=== PATIENT | female | born 1945 | race Caucasian/White ===

== ENCOUNTER 2020-12-19 20:01 | Emergency (ER) | payer MEDICARE ==
[~2020-12-19] VITALS: Ht 165.1 cm; Wt 75.0 kg
[~2020-12-19 20:01] MED LIST: AUGMENTIN875TAB OR; LEVAQUIN500 MG PO; Levaquin OR; MEDDOSEPAK PO; PROAIR HFA IN; QVAR80 MCG IN
[2020-12-19 21:22] LABS: HEMATOCRIT 35.3 % (37.0-47.0); HEMOGLOBIN 10.9 g/dl (12.0-16.0); IMMATURE GRANULOCYTES 0.7 % (0.0-5.0); MEAN CELL VOLUME 90.3 fL CALC (80.0-100.0); MEAN CORPUSCULAR HGB 27.9 pG CALC (26.0-32.0); MEAN CORPUSCULAR HGB CONC 30.9 g/dL CAL (32.0-36.0); NEUT# 6.85 thou/uL (2.00-7.15); RED BLOOD COUNT 3.91 mill/uL (4.20-5.60); RED CELL DISTRI WIDTH 15.2 % (11.5-15.5)
[2020-12-19 21:34] LABS: ALKALINE PHOSPHATASE 96 u/l (38-126); ANION GAP 9 (6-22 (CALC)); BILIRUBIN, TOTAL 0.8 mg/dL (0.0-1.4); BUN/CREATININE RATIO 37 (12-20 (CALC)); CARBON DIOXIDE 30 mmol/l (22-30); CHLORIDE 103 mmol/l (95-108); CREATININE 1.2 mg/dL (0.5-1.0); GFR 44 ML/MIN (>=60 (CALC)); GFR FOR AFR.AMER. 53 ML/MIN (>=60 (CALC)); POTASSIUM 4.6 mmol/l (3.5-5.1); SGOT/AST 21 u/l (9-36); SODIUM 138 mmol/l (137-146); TOTAL PROTEIN 7.7 g/dL (6.3-8.2)
[2020-12-19 21:37] LABS: BUN 44 mg/dL (8-23)
[2020-12-19 21:40] LABS: D-DIMER 0.81 mg/L (0.19-0.60)
[2020-12-19 21:42] LABS: MYOGLOBIN 27 ng/mL (0 - 62)
[2020-12-19 22:00] LABS: ACT PARTIAL THROMBO TIME 23.1 SECONDS (20.0-32.5); INTERNATIONAL NORMALIZED RATIO 0.9 RATIO (0.7-1.3); PROTHROMBIN TIME 9.7 SECONDS (9.0-12.5)
[2020-12-19 22:15] LABS: URINE BILIRUBIN - DIPSTICK NEGATIVE (NEGATIVE); URINE BLOOD DIPSTICK TRACE-INTACT (NEGATIVE); URINE COLOR YELLOW; URINE GLUCOSE - DIPSTICK NEGATIVE (NEGATIVE); URINE KETONE NEGATIVE (NEGATIVE); URINE PROTEIN - DIPSTICK NEGATIVE (NEG-TRACE); URINE SPECIFIC GRAVITY 1.015; URINE UROBILINOGEN - DIPSTICK 0.2 E.U./dL (0.2)
[2020-12-19 22:22] LABS: URINE LEUK ESTERASE SMALL (NEGATIVE); URINE NITRITE - DIPSTICK NEGATIVE (Negative)
[2020-12-19 22:29] LABS: URINE SQUAMOUS EPITHELIAL CELL FEW EPI/hpf (0-FEW)
[2020-12-20 03:50] VITALS: BP 67/46
== END 2020-12-20 03:45 | disposition short-term general hospital (02) ==
LOC: ED 20:01
PROVIDERS: Family Medicine
PROC: 0T9B70Z Drainage of Bladder with Drainage Device, Via Natural or Artificial Opening (ICD-10-PCS; principal; 2020-12-19)
DX: I10 Essential (primary) hypertension (principal); I48.91 Unspecified atrial fibrillation; Z20.822 Contact with and (suspected) exposure to COVID-19
CPT/HCPCS: J1650; J2060; Q9967

== ENCOUNTER 2020-12-26 18:35 | Emergency (ER) | payer MEDICARE ==
[~2020-12-26] VITALS: Ht 165.1 cm; Wt 75.0 kg
[2020-12-26 19:44] LABS: HEMATOCRIT 31.7 % (37.0-47.0); HEMOGLOBIN 9.6 g/dl (12.0-16.0); IMMATURE GRANULOCYTES 0.5 % (0.0-5.0); MEAN CELL VOLUME 92.7 fL CALC (80.0-100.0); MEAN CORPUSCULAR HGB 28.1 pG CALC (26.0-32.0); MEAN CORPUSCULAR HGB CONC 30.3 g/dL CAL (32.0-36.0); NEUT# 6.39 thou/uL (2.00-7.15); RED BLOOD COUNT 3.42 mill/uL (4.20-5.60)
[2020-12-26 19:59] LABS: ALBUMIN 3.9 g/dL (3.2-5.0); ALKALINE PHOSPHATASE 76 u/l (38-126); ANION GAP 9 (6-22 (CALC)); BILIRUBIN, TOTAL 0.8 mg/dL (0.0-1.4); BUN 29 mg/dL (8-23); BUN/CREATININE RATIO 30 (12-20 (CALC)); CARBON DIOXIDE 27 mmol/l (22-30); CHLORIDE 106 mmol/l (95-108); GFR 54 ML/MIN (>=60 (CALC)); GFR FOR AFR.AMER. > 60 ML/MIN (>=60 (CALC)); POTASSIUM 4.8 mmol/l (3.5-5.1); SGOT/AST 19 u/l (9-36); SODIUM 137 mmol/l (137-146); TOTAL PROTEIN 7.4 g/dL (6.3-8.2)
[2020-12-26 20:00] LABS: PROTHROMBIN TIME 12.4 SECONDS (9.0-12.5)
[2020-12-26 20:11] LABS: MYOGLOBIN 22 ng/mL (0 - 62)
[2020-12-26 20:15] LABS: INTERNATIONAL NORMALIZED RATIO 1.2 RATIO (0.7-1.3)
[2020-12-26 20:51] LABS: URINE BILIRUBIN - DIPSTICK NEGATIVE (NEGATIVE); URINE BLOOD DIPSTICK TRACE-INTACT (NEGATIVE); URINE COLOR YELLOW; URINE GLUCOSE - DIPSTICK NEGATIVE (NEGATIVE); URINE KETONE NEGATIVE (NEGATIVE); URINE LEUK ESTERASE NEGATIVE (NEGATIVE); URINE PROTEIN - DIPSTICK NEGATIVE (NEG-TRACE); URINE SPECIFIC GRAVITY 1.015; URINE UROBILINOGEN - DIPSTICK 0.2 E.U./dL (0.2)
[2020-12-26 20:54] LABS: URINE NITRITE - DIPSTICK NEGATIVE (Negative)
[2020-12-26] MEDS ORDERED: KEFLEX500 MG PO ×2 (23:22→23:28)
[2020-12-26] MEDS ORDERED: ROBITUSSIN AC10 ML PO ×2 (23:22→23:28)
[2020-12-26 23:30] VITALS: BP 159/60
== END 2020-12-26 23:30 | disposition home or self-care (01) ==
LOC: ED 18:35
PROVIDERS: Emergency Medicine
DX: J06.9 Acute upper respiratory infection, unspecified (principal); I10 Essential (primary) hypertension; I48.91 Unspecified atrial fibrillation; Z79.01 Long term (current) use of anticoagulants; Z20.822 Contact with and (suspected) exposure to COVID-19

== ENCOUNTER 2021-02-07 20:19 | Observation (INO) | payer MEDICARE ==
[~2021-02-07] VITALS: Ht 165.1 cm; Wt 71.1 kg
[~2021-02-07 20:19] MED LIST changes: +KEFLEX500 MG PO; +ROBITUSSIN AC10 ML PO
[2021-02-07 20:54] LABS: HEMATOCRIT 32.7 % (37.0-47.0); HEMOGLOBIN 10.2 g/dl (12.0-16.0); IMMATURE GRANULOCYTES 0.9 % (0.0-5.0); MEAN CELL VOLUME 94.2 fL CALC (80.0-100.0); MEAN CORPUSCULAR HGB 29.4 pG CALC (26.0-32.0); MEAN CORPUSCULAR HGB CONC 31.2 g/dL CAL (32.0-36.0); NEUT# 5.65 thou/uL (2.00-7.15); RED BLOOD COUNT 3.47 mill/uL (4.20-5.60); RED CELL DISTRI WIDTH 15.6 % (11.5-15.5)
[2021-02-07] MEDS ORDERED: CARVEDILOL12.5 MG PO (21:00)
[2021-02-07] MEDS ORDERED: FOLIC ACID1 MG PO (21:01)
[2021-02-07] MEDS ORDERED: HYDROCHLOROT12.5 MG PO (21:01)
[2021-02-07] MEDS ORDERED: PREDNISONE5 MG PO (21:02)
[2021-02-07] MEDS ORDERED: XARELTO20 MG PO (21:03)
[2021-02-07] MEDS ORDERED: LISINOPRIL40 MG PO (21:04)
[2021-02-07] MEDS ORDERED: PRAVASTATIN10 MG PO (21:05)
[2021-02-07] MEDS ORDERED: ASPIRIN81 MG PO (21:05)
[2021-02-07] MEDS ORDERED: PERCOCET 5/325M1 TAB PO (21:06)
[2021-02-07] MEDS ORDERED: METHOTREXATE2.5 MG PO (21:09)
[2021-02-07] MEDS ORDERED: EUTHYROX25 MCG PO (21:10)
[2021-02-07 21:11] LABS: INTERNATIONAL NORMALIZED RATIO 1.4 RATIO (0.7-1.3)
[2021-02-07 21:13] LABS: ALBUMIN 4.4 g/dL (3.2-5.0); ALKALINE PHOSPHATASE 99 u/l (38-126); ANION GAP 11 (6-22 (CALC)); BUN 29 mg/dL (8-23); BUN/CREATININE RATIO 32 (12-20 (CALC)); CARBON DIOXIDE 28 mmol/l (22-30); CHLORIDE 101 mmol/l (95-108); CREATININE 0.9 mg/dL (0.5-1.0); GFR > 60 ML/MIN (>=60 (CALC)); GFR FOR AFR.AMER. > 60 ML/MIN (>=60 (CALC)); POTASSIUM 4.4 mmol/l (3.5-5.1); SGOT/AST 22 u/l (9-36); SODIUM 136 mmol/l (137-146)
[2021-02-07 21:25] LABS: MYOGLOBIN 30 ng/mL (0 - 62)
[2021-02-07 21:38] LABS: URINE BILIRUBIN - DIPSTICK NEGATIVE (NEGATIVE); URINE BLOOD DIPSTICK SMALL (NEGATIVE); URINE COLOR YELLOW; URINE GLUCOSE - DIPSTICK NEGATIVE (NEGATIVE); URINE KETONE NEGATIVE (NEGATIVE); URINE LEUK ESTERASE NEGATIVE (NEGATIVE); URINE PH 6.5 (4.5-8.0); URINE PROTEIN - DIPSTICK NEGATIVE (NEG-TRACE); URINE SPECIFIC GRAVITY <=1.005; URINE UROBILINOGEN - DIPSTICK 0.2 E.U./dL (0.2)
[2021-02-07 21:39] LABS: URINE NITRITE - DIPSTICK NEGATIVE (Negative)
[2021-02-07 21:47] LABS: URINE WBC 0-2 WBC/hpf (0-5)
[2021-02-07 23:13] LABS: TSH, 3RD GENERATION 2.25 uIU/mL (0.47 - 4.68)
[2021-02-07 23:15] VITALS: BP 100/54
[2021-02-07 23:30] VITALS: BP 82/52
[2021-02-07 23:45] VITALS: BP 103/49
[2021-02-08] VITALS: BP 100/65
[2021-02-08 01:00] VITALS: BP 120/64
[2021-02-08 02:00] VITALS: BP 102/61
[2021-02-08 04:00] VITALS: BP 99/54
[2021-02-08 05:02] LABS: HEMATOCRIT 32.8 % (37.0-47.0); HEMOGLOBIN 10.2 g/dl (12.0-16.0); MEAN CELL VOLUME 94.3 fL CALC (80.0-100.0); MEAN CORPUSCULAR HGB 29.3 pG CALC (26.0-32.0); MEAN CORPUSCULAR HGB CONC 31.1 g/dL CAL (32.0-36.0); RED BLOOD COUNT 3.48 mill/uL (4.20-5.60); RED CELL DISTRI WIDTH 15.3 % (11.5-15.5)
[2021-02-08 05:29] LABS: ANION GAP 11 (6-22 (CALC)); BUN 24 mg/dL (8-23); BUN/CREATININE RATIO 31 (12-20 (CALC)); CARBON DIOXIDE 29 mmol/l (22-30); CHLORIDE 104 mmol/l (95-108); CREATININE 0.8 mg/dL (0.5-1.0); GFR > 60 ML/MIN (>=60 (CALC)); GFR FOR AFR.AMER. > 60 ML/MIN (>=60 (CALC)); MAGNESIUM 1.9 mg/dL (1.6-2.3); POTASSIUM 4.1 mmol/l (3.5-5.1); SODIUM 139 mmol/l (137-146)
[2021-02-08 08:00] VITALS: BP 119/65
[2021-02-08] MEDS ORDERED: LOPRESSOR 550 MG/TAB PO (11:02)
== END 2021-02-08 13:55 | disposition home or self-care (01) ==
LOC: ED 20:19 → ED-I 21:45 → MS2 21:46 → ED 21:46 → ICU 22:34
PROVIDERS: Emergency Medicine; ADMIT Hospitalist; ATTEND Hospitalist
DX: I48.91 Unspecified atrial fibrillation (principal); I10 Essential (primary) hypertension; E78.00 Pure hypercholesterolemia, unspecified; M06.9 Rheumatoid arthritis, unspecified; Z79.01 Long term (current) use of anticoagulants; Z20.822 Contact with and (suspected) exposure to COVID-19

== ENCOUNTER 2021-03-23 21:12 | Inpatient (IN) | payer MEDICARE ==
[~2021-03-23] VITALS: Ht 165.1 cm; Wt 62.4 kg
[~2021-03-23 21:12] MED LIST changes: +ASPIRIN81 MG PO; +CARVEDILOL12.5 MG PO; +EUTHYROX25 MCG PO; +FOLIC ACID1 MG PO; +HYDROCHLOROT12.5 MG PO; +LISINOPRIL40 MG PO; +LOPRESSOR 550 MG/TAB PO; +METHOTREXATE2.5 MG PO; +PERCOCET 5/325M1 TAB PO; +PRAVASTATIN10 MG PO; +PREDNISONE5 MG PO; +XARELTO20 MG PO
--- NOTE | 2021-03-23 21:18 | NUR ---
AMBULATED TO ROOM WITH STEADY GAIT
[2021-03-23 22:02] LABS: HEMATOCRIT 30.7 % (37.0-47.0); HEMOGLOBIN 9.6 g/dl (12.0-16.0); IMMATURE GRANULOCYTES 0.4 % (0.0-5.0); MEAN CELL VOLUME 94.2 fL CALC (80.0-100.0); MEAN CORPUSCULAR HGB 29.4 pG CALC (26.0-32.0); MEAN CORPUSCULAR HGB CONC 31.3 g/dL CAL (32.0-36.0); NEUT# 5.98 thou/uL (2.00-7.15); RED BLOOD COUNT 3.26 mill/uL (4.20-5.60); RED CELL DISTRI WIDTH 14.3 % (11.5-15.5)
[2021-03-23 22:09] LABS: URINE BILIRUBIN - DIPSTICK NEGATIVE (NEGATIVE); URINE BLOOD DIPSTICK SMALL (NEGATIVE); URINE COLOR YELLOW; URINE GLUCOSE - DIPSTICK NEGATIVE (NEGATIVE); URINE KETONE NEGATIVE (NEGATIVE); URINE LEUK ESTERASE TRACE (NEGATIVE); URINE NITRITE - DIPSTICK NEGATIVE (Negative); URINE PROTEIN - DIPSTICK NEGATIVE (NEG-TRACE); URINE UROBILINOGEN - DIPSTICK 0.2 E.U./dL (0.2)
[2021-03-23 22:15] LABS: ALBUMIN 4.3 g/dL (3.2-5.0); ALKALINE PHOSPHATASE 126 u/l (38-126); ANION GAP 10 (6-22 (CALC)); BILIRUBIN, TOTAL 0.8 mg/dL (0.0-1.4); BUN 26 mg/dL (8-23); BUN/CREATININE RATIO 27 (12-20 (CALC)); CARBON DIOXIDE 30 mmol/l (22-30); CHLORIDE 101 mmol/l (95-108); GFR 54 ML/MIN (>=60 (CALC)); GFR FOR AFR.AMER. > 60 ML/MIN (>=60 (CALC)); POTASSIUM 3.9 mmol/l (3.5-5.1); SGOT/AST 21 u/l (9-36); SODIUM 137 mmol/l (137-146); TOTAL PROTEIN 8.2 g/dL (6.3-8.2)
--- NOTE | 2021-03-23 22:15 | NUR ---
PT REC'ED MAGUI STILL C/O SOB.DR Montano AT BEDSIDE
[2021-03-23 22:18] LABS: URINE SQUAMOUS EPITHELIAL CELL FEW EPI/hpf (0-FEW); URINE WBC 0-2 WBC/hpf (0-5)
[2021-03-23 22:27] LABS: MYOGLOBIN 26 ng/mL (0 - 62)
[2021-03-23] MEDS ORDERED: SOTALOL HCL80 M1 PO (23:16)
--- NOTE | 2021-03-23 23:18 | NUR ---
PT IS NOW FEELING WARM NO COUGH NO SOB ON BIPAP.NO PAIN OF ANY ORIGIN
[2021-03-23] MEDS ORDERED: METHOTREXATE S2.5 MG PO (23:19)
--- NOTE | 2021-03-23 23:55 | NUR ---
TELEPHONE REPORT RECEIVED FROM Giovana MOREL RN IN ED. ICU5 PREPARED TO RECEIVE PT.
[2021-03-24] VITALS (18 sets, daily range): BP systolic 93–141; BP diastolic 38–60
--- NOTE | 2021-03-24 00:05 | NUR ---
PT IS RESTING AND IN NO RESP DISTRESS.SR NO SOB NO PAIN.
--- NOTE | 2021-03-24 00:15 | NUR ---
PT TRANSPORTED TO ICU RM 5 VIA STRETCHER ON BIPAP AND MONITOR IN IMPROVED STABLE CONDITIONPT HAS 600 CC CLEAR URINE IN BROWN BAG
--- NOTE | 2021-03-24 00:30 | NUR ---
PT ARRIVES TO UNIT VIA STRETCHER ACCOMPANIED BY CARL MOREL RN. PT ADMITTED TO ICU 5.
[2021-03-24 05:36] LABS: HEMATOCRIT 32.3 % (37.0-47.0); HEMOGLOBIN 9.9 g/dl (12.0-16.0); MEAN CELL VOLUME 95.3 fL CALC (80.0-100.0); MEAN CORPUSCULAR HGB 29.2 pG CALC (26.0-32.0); MEAN CORPUSCULAR HGB CONC 30.7 g/dL CAL (32.0-36.0); RED BLOOD COUNT 3.39 mill/uL (4.20-5.60); RED CELL DISTRI WIDTH 14.2 % (11.5-15.5)
[2021-03-24 06:16] LABS: ANION GAP 11 (6-22 (CALC)); BUN 26 mg/dL (8-23); BUN/CREATININE RATIO 27 (12-20 (CALC)); CARBON DIOXIDE 29 mmol/l (22-30); CHLORIDE 101 mmol/l (95-108); GFR 54 ML/MIN (>=60 (CALC)); GFR FOR AFR.AMER. > 60 ML/MIN (>=60 (CALC)); MAGNESIUM 1.8 mg/dL (1.6-2.3); POTASSIUM 3.8 mmol/l (3.5-5.1); SODIUM 137 mmol/l (137-146)
--- NOTE | 2021-03-24 07:00 | NUR ---
ASSUMED CARE OF PT. PT RESTING IN BED, BIPAP IN PLACE, NO S/S OF DISTRESS NOTED.
--- NOTE | 2021-03-24 07:44 | NUR ---
PT PLACED ON 5L NC. BIPAP ON STANDBY. PT STATES SHE IS FEELING MUCH BETTER. PT ALSO STATES THAT SHE USES AN OXYGEN CONCENTRATOR AT 2 LITERS AT NIGHT.
--- NOTE | 2021-03-24 09:25 | NUR ---
ROUNDING AT BEDSIDE
--- NOTE | 2021-03-24 10:40 | NUR ---
SPOUSE VISITING AT BEDSIDE
--- NOTE | 2021-03-24 16:00 | NUR ---
PT RESTING IN BED, SPOUSE VISITING FOR 2ND VISIT TODAY
--- NOTE | 2021-03-24 17:48 | NUR ---
PT RESTING IN BED, DENIES ANY NEEDS AT THIS TIME
--- NOTE | 2021-03-24 19:00 | NUR ---
REPORT RECEIVED FROM Vivian HAYES RN, CARE OF PT ASSUMED AT THIS TIME.
--- NOTE | 2021-03-24 23:35 | NUR ---
PT FEELS URGE TO HAVE BM. ASSISTED PT TO BSC AND THEN BACK TO BED. + FLATUS. NO BM.
[2021-03-25] VITALS: BP 96/39
[2021-03-25 04:00] VITALS: BP 90/43
[2021-03-25 05:47] LABS: HEMOGLOBIN 8.1 g/dl (12.0-16.0); MEAN CORPUSCULAR HGB 29.5 pG CALC (26.0-32.0); RED BLOOD COUNT 2.75 mill/uL (4.20-5.60); RED CELL DISTRI WIDTH 14.2 % (11.5-15.5)
[2021-03-25 06:02] LABS: CREATININE 1.1 mg/dL (0.5-1.0); POTASSIUM 3.9 mmol/l (3.5-5.1)
[2021-03-25 06:03] LABS: HEMATOCRIT 25.3 % (37.0-47.0)
--- NOTE | 2021-03-25 07:00 | NUR ---
ASSUMED CARE OF PT FROM ASHLI GONZALEZ. NO S/S OF DISTRESS NOTED. PT DENIES ANY CURRENT NEEDS
--- NOTE | 2021-03-25 09:15 | NUR ---
ROUNDING AT PT BEDSIDE
--- NOTE | 2021-03-25 10:05 | NUR ---
SPOUSE VISITNG AT PT BEDSIDE
[2021-03-25 11:05] VITALS: BP 114/55; BP 115/47
--- NOTE | 2021-03-25 12:41 | NUR ---
PT OOB IN RECLINER, NO S/S OF DISTRESS NOTED. DENIES ANY CURRENT NEEDS
--- NOTE | 2021-03-25 15:22 | NUR ---
SPOUSE AT BEDSIDE FOR PT SECOND VISIT.
--- NOTE | 2021-03-25 16:51 | NUR ---
REPORT REC FROM BG CORNELIUS
--- NOTE | 2021-03-25 16:51 | NUR ---
REPORT CALLED TO ASHLI CASEY FOR PT TRANSFER TO ROOM 272, TELE MONITOR IN PLACE. PT TRANSPORTED VIA WHEELCHAIR WITH BELONGINGS.
--- NOTE | 2021-03-25 17:00 | NUR ---
PT ARRIVED VIA WC ACCOMPANIED BY BG CORNELIUS. O2 VIA NC @2L IN PLACE. ORIENTED PT TO ROOM. CALL LIGHT WITHIN REACH.
[2021-03-25 19:00] VITALS: BP 148/76
--- NOTE | 2021-03-25 20:10 | NUR ---
PATIENT ALERT AND ORIENTED. ABLE TO MAKE NEEDS KNOWN. ASSESSMENT COMPLETE. NO SIGNS OF DISTRESS NOTED. NO COMPLAINTS OF PAIN VOICED. CALL LIGHT AND BELONGINGS REMAIN IN REACH.
[2021-03-25 20:30] VITALS: BP 133/52
[2021-03-26] VITALS: BP 113/40
--- NOTE | 2021-03-26 00:30 | NUR ---
RESTING IN BED QUEITLY. PATIENT DENIED NEEDING ANYTHING AT THIS TIME. NO SIGNS OF DISTRESS NOTED. NO COMPLAINTS OF PAIN VOICED. CALL LIGHT AND BELONGINGS EMAIN IN REACH.
[2021-03-26 04:00] VITALS: BP 134/54
--- NOTE | 2021-03-26 04:30 | NUR ---
PATIENT RESTING IN BED. HAS SOME CONCERNS ABOUT HER DIETARY INTAKE WHEN SHE GOES HOME AND WOULD LIKE TO SPEAK WITH DIETARY OR DOCTOR ABOUT HER CONCERNS. WILL RELAY TO DAY SHIFT NURSE.
[2021-03-26 05:47] LABS: HEMATOCRIT 28.1 % (37.0-47.0); HEMOGLOBIN 8.6 g/dl (12.0-16.0); MEAN CELL VOLUME 96.2 fL CALC (80.0-100.0); MEAN CORPUSCULAR HGB 29.5 pG CALC (26.0-32.0); MEAN CORPUSCULAR HGB CONC 30.6 g/dL CAL (32.0-36.0); RED BLOOD COUNT 2.92 mill/uL (4.20-5.60); RED CELL DISTRI WIDTH 14.2 % (11.5-15.5)
[2021-03-26 06:18] LABS: ANION GAP 10 (6-22 (CALC)); BUN 34 mg/dL (8-23); BUN/CREATININE RATIO 40 (12-20 (CALC)); CARBON DIOXIDE 30 mmol/l (22-30); CHLORIDE 102 mmol/l (95-108); CREATININE 0.9 mg/dL (0.5-1.0); GFR > 60 ML/MIN (>=60 (CALC)); GFR FOR AFR.AMER. > 60 ML/MIN (>=60 (CALC)); POTASSIUM 4.1 mmol/l (3.5-5.1); SODIUM 138 mmol/l (137-146)
[2021-03-26 08:48] VITALS: BP 145/59
--- NOTE | 2021-03-26 08:50 | NUR ---
PT SITTING ON SIDE OF THE BED UPON ENTERING ROOM. STATES NO PAIN AT THIS TIME. VITALS AND ASSESSMENT ALLOWED AT THIS TIME. LUNG SOUNDS CLEAR UPPER/LOWER LOBES. BREATHING IS EVEN AND UNLABORED. HEART SOUNDS IRREGULAR UPON AUSCULATION. TELE MONITOR IN PLACE. #[id number]. CONTINOUS MONITORING BY ED. BOWEL SOUNDS ACTIVE X4. STATES ANXIOUS ABOUT WHAT TO DO FOR DIET IN REGARDS TO AFIB/CARDIAC. IV LOCATED ON [facility] 20G SALINE LOCK. FLUSHED WITH NO RESISTANCE AND ABLE TO GET BLOOD RETURN. STATES NO OTHER NEEDS AT THIS TIME. CALL LIGHT AND PERSONAL ITEMS WITHIN REACH.
[2021-03-26] MEDS ORDERED: OMEPRAZOLE DR40 MG PO (10:59)
[2021-03-26] MEDS ORDERED: DOXY-CAPS100 MG PO (11:01)
[2021-03-26] MEDS ORDERED: PREDNISONE10 MG PO (11:03)
--- NOTE | 2021-03-26 12:59 | NUR ---
Discharge instructions given. Patient verbalizes understanding of same. Discharged in stable condition via Wheelchair to Home with [facility] staff. All belongings sent with pt. IV RAC 20G EVERYTHING INTACT UPON REMOVAL. TELE MONITOR OFF #[id number]. UNDERSTANDS TO COME IF SYMPTOMS WORSEN.
== END 2021-03-26 12:59 | disposition home or self-care (01) | DRG 190 ==
LOC: ED 21:12 → ED-I 23:17 → ED 23:28 → ICU 23:29 → MS2 03-25 17:00
PROVIDERS: Emergency Medicine; Nurse Practitioner; ADMIT Hospitalist; ATTEND Hospitalist
PROC: 5A09357 Assistance with Respiratory Ventilation, Less than 24 Consecutive Hours, Continuous Positive Airway Pressure (ICD-10-PCS; principal; 2021-03-23)
DX: J44.1 Chronic obstructive pulmonary disease with (acute) exacerbation (principal); J18.9 Pneumonia, unspecified organism; J96.11 Chronic respiratory failure with hypoxia; J44.0 Chronic obstructive pulmonary disease with (acute) lower respiratory infection; I10 Essential (primary) hypertension; I48.0 Paroxysmal atrial fibrillation; M06.9 Rheumatoid arthritis, unspecified; Z99.81 Dependence on supplemental oxygen; Z79.01 Long term (current) use of anticoagulants; Z87.891 Personal history of nicotine dependence; Z20.822 Contact with and (suspected) exposure to COVID-19

== ENCOUNTER 2022-09-16 13:24 | Emergency (ER) | payer MEDICARE ==
[2022-09-16] VITALS (8 sets, daily range): BP systolic 146–168; BP diastolic 43–70
[~2022-09-16] VITALS: Ht 165.1 cm; Wt 60.3 kg
[~2022-09-16 13:24] MED LIST changes: +DOXY-CAPS100 MG PO; +METHOTREXATE S2.5 MG PO; +OMEPRAZOLE DR40 MG PO; +PREDNISONE10 MG PO; +SOTALOL HCL80 M1 PO
[2022-09-16] MEDS ORDERED: PRILOSEC OTC20 MG PO (13:46)
[2022-09-16] MEDS ORDERED: LOPRESSOR25 M1 PO (13:48)
[2022-09-16] MEDS ORDERED: FOLIC ACID1 MG PO (13:48)
[2022-09-16] MEDS ORDERED: EUTHYROX25 MCG PO (13:49)
[2022-09-16 14:34] LABS: BASO% 0.5 % (0-3); EOS% 1.4 % (0-8); HEMATOCRIT 36.2 % (37.0-47.0); HEMOGLOBIN 11.7 g/dl (12.0-16.0); IMMATURE GRANULOCYTES 0.2 % (0.0-5.0); LYMPH% 13.9 % (15-41); MEAN CELL VOLUME 95.8 fL CALC (80.0-100.0); MEAN CORPUSCULAR HGB CONC 32.3 g/dL CAL (32.0-36.0); MONO% 7.7 % (2-13); NEUT# 6.43 thou/uL (2.00-7.15); NEUT% 76.3 % (42-76); RED BLOOD COUNT 3.78 mill/uL (4.20-5.60); RED CELL DISTRI WIDTH 12.9 % (11.5-15.5)
[2022-09-16 14:49] LABS: ALBUMIN 4.6 g/dL (3.2-5.0); ALKALINE PHOSPHATASE 106 u/l (38-126); ANION GAP 12 (6-22 (CALC)); BILIRUBIN, TOTAL 1.1 mg/dL (0.02-1.3); BUN 21 mg/dL (8-23); BUN/CREATININE RATIO 30 (12-20 (CALC)); CARBON DIOXIDE 31 mmol/l (22-30); CHLORIDE 97 mmol/l (95-108); CREATININE 0.7 mg/dL (0.5-1.0); GFR FOR AFR.AMER. > 60 ML/MIN (>=60 (CALC)); GFR OTHER RACES > 60 ML/MIN (>=60 (CALC)); POTASSIUM 3.8 mmol/l (3.5-5.1); SGOT/AST 33 u/l (9-36); SODIUM 136 mmol/l (137-146); TOTAL PROTEIN 8.2 g/dL (6.3-8.2)
[2022-09-16 14:52] LABS: URINE BILIRUBIN - DIPSTICK NEGATIVE (NEGATIVE); URINE BLOOD DIPSTICK SMALL (NEGATIVE); URINE COLOR YELLOW; URINE GLUCOSE - DIPSTICK NEGATIVE (NEGATIVE); URINE KETONE NEGATIVE (NEGATIVE); URINE LEUK ESTERASE NEGATIVE (NEGATIVE); URINE PH 6.5 (4.5-8.0); URINE PROTEIN - DIPSTICK NEGATIVE (NEG-TRACE); URINE UROBILINOGEN - DIPSTICK 0.2 E.U./dL (0.2)
[2022-09-16 15:00] LABS: URINE NITRITE - DIPSTICK NEGATIVE (Negative)
[2022-09-16 15:01] LABS: URINE WBC 0-2 WBC/hpf (0-5)
[2022-09-16] MEDS ORDERED: ALLERGY RE50 MCG/ACT (15:50)
== END 2022-09-16 16:05 | disposition home or self-care (01) ==
LOC: ED 13:24
PROVIDERS: Nurse Practitioner
DX: I10 Essential (primary) hypertension (principal); H92.02 Otalgia, left ear; I48.91 Unspecified atrial fibrillation; J44.9 Chronic obstructive pulmonary disease, unspecified; M06.9 Rheumatoid arthritis, unspecified; Z20.822 Contact with and (suspected) exposure to COVID-19

== ENCOUNTER 2022-11-05 20:25 | Emergency (ER) | payer MEDICARE ==
[~2022-11-05] VITALS: Ht 165.1 cm; Wt 68.0 kg
[2022-11-05] VITALS (12 sets, daily range): BP systolic 115–182; BP diastolic 39–79
[~2022-11-05 20:25] MED LIST changes: +ALLERGY RE50 MCG/ACT; +LOPRESSOR25 M1 PO; +PRILOSEC OTC20 MG PO
[2022-11-05 22:25] LABS: BASO% 0.5 % (0-3); EOS% 1.5 % (0-8); HEMATOCRIT 35.9 % (37.0-47.0); HEMOGLOBIN 11.6 g/dl (12.0-16.0); IMMATURE GRANULOCYTES 0.1 % (0.0-5.0); LYMPH% 15.9 % (15-41); MEAN CELL VOLUME 96.8 fL CALC (80.0-100.0); MEAN CORPUSCULAR HGB 31.3 pG CALC (26.0-32.0); MEAN CORPUSCULAR HGB CONC 32.3 g/dL CAL (32.0-36.0); MONO% 9.3 % (2-13); NEUT# 6.42 thou/uL (2.00-7.15); NEUT% 72.7 % (42-76); RED BLOOD COUNT 3.71 mill/uL (4.20-5.60); RED CELL DISTRI WIDTH 12.8 % (11.5-15.5)
[2022-11-05 22:56] LABS: ALBUMIN 4.4 g/dL (3.2-5.0); ALKALINE PHOSPHATASE 103 u/l (38-126); BUN 17 mg/dL (8-23); BUN/CREATININE RATIO 23 (12-20 (CALC)); CARBON DIOXIDE 31 mmol/l (22-30); CHLORIDE 97 mmol/l (95-108); CREATININE 0.7 mg/dL (0.5-1.0); GFR FOR AFR.AMER. > 60 ML/MIN (>=60 (CALC)); GFR OTHER RACES > 60 ML/MIN (>=60 (CALC)); SGOT/AST 25 u/l (9-36); SODIUM 136 mmol/l (137-146); TOTAL PROTEIN 7.8 g/dL (6.3-8.2)
[2022-11-05 23:10] LABS: ANION GAP 13 (6-22 (CALC)); BILIRUBIN, TOTAL 2.2 mg/dL (0.02-1.3); POTASSIUM 4.8 mmol/l (3.5-5.1)
[2022-11-05 23:14] LABS: URINE BILIRUBIN - DIPSTICK Negative (NEGATIVE); URINE BLOOD DIPSTICK Trace-intact (NEGATIVE); URINE COLOR Yellow; URINE GLUCOSE - DIPSTICK Negative (NEGATIVE); URINE KETONE Negative (NEGATIVE); URINE LEUK ESTERASE Negative (NEGATIVE); URINE NITRITE - DIPSTICK Negative (Negative); URINE PH 5.5 (4.5-8.0); URINE PROTEIN - DIPSTICK Negative (NEG-TRACE); URINE SPECIFIC GRAVITY <=1.005; URINE UROBILINOGEN - DIPSTICK 0.2 E.U./dL (0.2)
== END 2022-11-05 23:55 | disposition home or self-care (01) ==
LOC: ED 20:25
PROVIDERS: Family Medicine
DX: I10 Essential (primary) hypertension (principal); I48.91 Unspecified atrial fibrillation; J44.9 Chronic obstructive pulmonary disease, unspecified; M06.9 Rheumatoid arthritis, unspecified

== ENCOUNTER 2023-03-21 15:43 | Emergency (ER) | payer MEDICARE ==
[2023-03-21] VITALS (19 sets, daily range): BP systolic 121–203; BP diastolic 38–80
[~2023-03-21] VITALS: Ht 165.1 cm; Wt 62.0 kg
[~2023-03-21 15:43] MED LIST changes: +COLCHICINE0.6 M2 PO; +COREG6.25 MG PO; +HYDROCHLOROTH12.5 MG PO; +LISINOPRIL10 MG PO; +NORVASC2.5 M1 PO; +SPIRIVA RE2.5 MCG/AC IN
[2023-03-21] MEDS ORDERED: METHOTREXATE S2.5 M1 (16:39)
[2023-03-21 17:20] LABS: BASO% 0.4 % (0-3); EOS% 1.8 % (0-8); HEMATOCRIT 28.2 % (37.0-47.0); HEMOGLOBIN 8.8 g/dl (12.0-16.0); IMMATURE GRANULOCYTES 0.1 % (0.0-5.0); LYMPH% 11.4 % (15-41); MEAN CELL VOLUME 95.3 fL CALC (80.0-100.0); MEAN CORPUSCULAR HGB 29.7 pG CALC (26.0-32.0); MEAN CORPUSCULAR HGB CONC 31.2 g/dL CAL (32.0-36.0); MONO% 8.1 % (2-13); NEUT# 5.79 thou/uL (2.00-7.15); NEUT% 78.2 % (42-76); RED BLOOD COUNT 2.96 mill/uL (4.20-5.60); RED CELL DISTRI WIDTH 15.7 % (11.5-15.5)
[2023-03-21 17:34] LABS: ALKALINE PHOSPHATASE 155 u/l (38-126); ANION GAP 15 (6-22 (CALC)); BILIRUBIN, TOTAL 1.4 mg/dL (0.02-1.3); BUN 23 mg/dL (8-23); BUN/CREATININE RATIO 27 (12-20 (CALC)); CHLORIDE 99 mmol/l (95-108); CREATININE 0.9 mg/dL (0.5-1.0); GFR FOR AFR.AMER. > 60 ML/MIN (>=60 (CALC)); GFR OTHER RACES > 60 ML/MIN (>=60 (CALC)); POTASSIUM 3.3 mmol/l (3.5-5.1); SGOT/AST 33 u/l (9-36); SODIUM 136 mmol/l (137-146)
[2023-03-21 17:42] LABS: CARBON DIOXIDE 25 mmol/l (22-30)
[2023-03-21 19:01] LABS: ACT PARTIAL THROMBO TIME 24.9 SECONDS (20.0-32.5)
[2023-03-21] MEDS ORDERED: VENTOLIN HFA IN (22:58)
== END 2023-03-21 23:33 | disposition home or self-care (01) ==
LOC: ED 15:43
PROVIDERS: Family Medicine
DX: R06.02 Shortness of breath (principal); I10 Essential (primary) hypertension; I48.91 Unspecified atrial fibrillation; J44.9 Chronic obstructive pulmonary disease, unspecified; Z95.0 Presence of cardiac pacemaker; Z95.818 Presence of other cardiac implants and grafts; Z20.822 Contact with and (suspected) exposure to COVID-19
CPT/HCPCS: Q9967

== ENCOUNTER 2023-04-25 09:56 | Emergency (ER) | payer MEDICARE ==
[2023-04-25] VITALS (7 sets, daily range): BP systolic 121–163; BP diastolic 39–56
[~2023-04-25] VITALS: Ht 165.1 cm; Wt 61.2 kg
[~2023-04-25 09:56] MED LIST changes: +METHOTREXATE S2.5 M1; +VENTOLIN HFA IN
[2023-04-25 11:49] LABS: URINE BILIRUBIN - DIPSTICK Negative (NEGATIVE); URINE BLOOD DIPSTICK Trace-lysed (NEGATIVE); URINE GLUCOSE - DIPSTICK Negative (NEGATIVE); URINE KETONE Negative (NEGATIVE); URINE LEUK ESTERASE Negative (NEGATIVE); URINE NITRITE - DIPSTICK Negative (Negative); URINE PH 5.5 (4.5-8.0); URINE PROTEIN - DIPSTICK Trace mg/dL (NEG-TRACE); URINE UROBILINOGEN - DIPSTICK 0.2 E.U./dL (0.2)
[2023-04-25 11:50] LABS: URINE COLOR Yellow
[2023-04-25] MEDS ORDERED: DIFLUCAN150 MG PO (12:15)
== END 2023-04-25 12:30 | disposition home or self-care (01) ==
LOC: ED 09:56
PROVIDERS: Emergency Medicine
DX: N89.8 Other specified noninflammatory disorders of vagina (principal); R10.2 Pelvic and perineal pain; I10 Essential (primary) hypertension; I48.91 Unspecified atrial fibrillation; J44.9 Chronic obstructive pulmonary disease, unspecified; M06.9 Rheumatoid arthritis, unspecified; Z95.0 Presence of cardiac pacemaker; Z95.818 Presence of other cardiac implants and grafts

== ENCOUNTER 2024-04-09 10:50 | Emergency (ER) | payer MEDICARE ==
[~2024-04-09] VITALS: Ht 165.1 cm; Wt 65.3 kg
[2024-04-09] VITALS (17 sets, daily range): BP systolic 135–178; BP diastolic 48–80
[~2024-04-09 10:50] MED LIST changes: +AMLODIPINE BESYL5 MG PO; +AMOX/K CLAV875 M1 PO; +DIFLUCAN150 MG PO; +IPRATROPIUM BR0.02 %; +KLOR-CON M1010 MEQ PO; +LASIX 40 MG TAB40 MG PO; +LEVOFLOXACIN250 M1 PO; +LISINOPRIL20 M1 PO; +PEPCID AC10 MG PO; +PRAVASTATIN SOD10 MG PO; +TOPROL XL50 MG PO
[2024-04-09] MEDS ORDERED: ASPIRIN 81 MG/TAB PO ONE (11:40)
[2024-04-09 11:55] LABS: BASO% 0.2 % (0-3); EOS% 1.1 % (0-8); HEMATOCRIT 46.4 % (37.0-47.0); HEMOGLOBIN 13.9 g/dl (12.0-16.0); IMMATURE GRANULOCYTES 0.2 % (0.0-5.0); LYMPH% 13.1 % (15-41); MEAN CELL VOLUME 97.3 fL CALC (80.0-100.0); MEAN CORPUSCULAR HGB 29.1 pG CALC (26.0-32.0); MONO% 6.4 % (2-13); NEUT# 6.75 thou/uL (2.00-7.15); RED BLOOD COUNT 4.77 mill/uL (4.20-5.60); RED CELL DISTRI WIDTH 14.8 % (11.5-15.5)
[2024-04-09 12:06] LABS: ALKALINE PHOSPHATASE 133 u/l (38-126); ANION GAP 14 (6-22 (CALC)); BUN 20 mg/dL (8-23); BUN/CREATININE RATIO 32 (12-20 (CALC)); CARBON DIOXIDE 29 mmol/l (22-30); CHLORIDE 102 mmol/l (95-108); CREATININE 0.6 mg/dL (0.5-1.0); ESTIMATED GFR 91 ML/MIN (>=90 (CALC)); ETHYL ALCOHOL 0 mg/dl (0-30); POTASSIUM 3.2 mmol/l (3.5-5.1); SODIUM 142 mmol/l (137-146)
[2024-04-09 12:12] LABS: ALBUMIN 4.8 g/dL (3.2-5.0); BILIRUBIN, TOTAL 1.9 mg/dL (0.02-1.3); SGOT/AST 62 u/l (9-36); TOTAL PROTEIN 8.9 g/dL (6.3-8.2)
[2024-04-09] MEDS ORDERED: PEPCID40 MG PO (12:34)
[2024-04-09 13:17] LABS: URINE BILIRUBIN - DIPSTICK Negative (NEGATIVE); URINE BLOOD DIPSTICK Trace-intact (NEGATIVE); URINE GLUCOSE - DIPSTICK Negative (NEGATIVE); URINE KETONE Negative (NEGATIVE); URINE LEUK ESTERASE Negative (NEGATIVE); URINE NITRITE - DIPSTICK Negative (Negative); URINE PROTEIN - DIPSTICK 30 mg/dL (NEG-TRACE); URINE SPECIFIC GRAVITY 1.015; URINE UROBILINOGEN - DIPSTICK 0.2 E.U./dL (0.2)
[2024-04-09 13:18] LABS: URINE COLOR Yellow
[2024-04-09 13:35] LABS: URINE SQUAMOUS EPITHELIAL CELL RARE EPI/hpf (0-FEW); URINE TRANSITIONAL EPI. CELLS RARE hpf
== END 2024-04-09 15:45 | disposition home or self-care (01) ==
LOC: ED 10:50
PROVIDERS: Emergency Medicine
DX: I10 Essential (primary) hypertension (principal); J44.9 Chronic obstructive pulmonary disease, unspecified; Z99.81 Dependence on supplemental oxygen; Z95.0 Presence of cardiac pacemaker; Z95.818 Presence of other cardiac implants and grafts